=== PATIENT | male | born 1955 | race Caucasian/White ===

== ENCOUNTER → 2022-03-30 11:51 | Outpatient (BNVA) | payer MEDICARE, SELFPAY | PROVIDERS: Visit Provider Internal Medicine | DX: I11.9 Hypertensive heart disease without heart failure (principal); R06.09 Other forms of dyspnea; I25.10 Atherosclerotic heart disease of native coronary artery without angina pectoris; Z95.1 Presence of aortocoronary bypass graft; E78.5 Hyperlipidemia, unspecified; R94.31 Abnormal electrocardiogram [ECG] [EKG] | CPT/HCPCS: 93005; 99204 ==

== ENCOUNTER 2022-04-03 14:20 | Outpatient (CLI) | payer MEDICARE, SELFPAY ==
--- NOTE | 2022-04-03 14:15 | USCV_ITS ---
Abdi Guan Age: 66 Gender: M : 1955 Exam Date: 04/03/2022 14:42 Ordering Phys: Royal Gonzalez M.D ([email or web address]) Technologist: Exam Location[place] [facility] [place] Indication: hx of cabg BP: 155 / 88 HR: 99 Rhythm: Sinus Technical Quality: Adequate MEASUREMENTS (Male / Female) Normal Values 2D ECHO LV Diastolic Diameter PLAX 3.9 cm 4.2 - 5.9 / 3.9 - 5.3 cm LV Systolic Diameter PLAX 2.4 cm IVS Diastolic Thickness 1.2 cm 0.6 - 1.0 / 0.6 - 0.9 cm IVS Systolic Thickness 1.3 cm LVPW Diastolic Thickness 1.0 cm 0.6 - 1.0 / 0.6 - 0.9 cm LVPW Systolic Thickness 1.5 cm LVOT Diameter 2.1 cm LV Ejection Fraction 2D Teich 68.8 % LV Ejection Fraction MOD 2C 42.2 % LV Ejection Fraction 2C AL 41.3 % LA Diameter 4.5 cm M-MODE Aortic Annulus Diameter 3.4 cm LA Ao Ratio MM 1.4 MV E Point Septal Separation 1.4 cm DOPPLER AV Peak Velocity 125.0 cm/s LVOT Peak Velocity 99.0 cm/s AV Area Cont Eq vti 2.5 cm squared AV Area Cont Eq pk 2.6 cm squared MV Area PHT 3.1 cm squared Mitral E to A Ratio 0.9 MV E' Velocity 57.6 cm/s Mitral E to MV E' Ratio 14.0 Mitral E to LV E' Lateral Ratio 11.7 Mitral E to LV E' Septal Ratio 17.5 TR Peak Velocity 141.0 cm/s TR Peak Gradient 8.0 mmHg TV Peak E Velocity 97.0 cm/s Right Atrial Pressure 3.0 mmHg Pulmonary Artery Systolic Pressu 11.0 mmHg RV Acceleration Time 0.1 s FINDINGS Left Ventricle Technically limited quality echocardiogram because of poor ultrasonic windows. LV systolic function is normal with EF of 50 to 55%. No regional wall motion abnormalities are seen. Grade 1 diastolic dysfunction. Right Ventricle The right ventricle is normal in size and function. Right Atrium The right atrium is normal in size. Left Atrium Dilated. Mitral Valve Moderate mitral annular calcification is seen. Trace mitral regurgitation. Aortic Valve Aortic valve is thickened and calcified.No significant stenosis. Mild aortic regurgitation. Tricuspid Valve Trace tricuspid regurgitation. Insufficient TR jet to calculate RVSP. Pulmonic Valve Not well-visualized. Trace pulmonic regurgitation. Pericardium Normal pericardium without effusion. Aorta Grossly normal in size IVC Not well visualized CONCLUSIONS Technically limited quality echocardiogram because of poor ultrasonic windows. LV systolic function is normal with EF 50 to 55%. Grade 1 diastolic dysfunction Left atrial dilation Trace mitral regurgitation Mild aortic regurgitation Trace tricuspid regurgitation Trace pulmonic regurgitation No comparison studies are available Royal Gonzalez MD (Electronically Signed) Final Date: 17 April 2022 20:34 S
== END 2022-04-03 14:21 | disposition home or self-care (01) ==
PROVIDERS: PCP Family Medicine; Visit Provider Internal Medicine
DX: R06.09 Other forms of dyspnea (principal); Z95.1 Presence of aortocoronary bypass graft; I08.3 Combined rheumatic disorders of mitral, aortic and tricuspid valves
CPT/HCPCS: 93306

== ENCOUNTER → 2022-06-15 12:46 | Outpatient (BNVA) | payer MEDICARE, SELFPAY | PROVIDERS: PCP Family Medicine; Visit Provider Specialist | DX: G56.13 Other lesions of median nerve, bilateral upper limbs (principal) | CPT/HCPCS: 95910 ==

== ENCOUNTER → 2022-08-03 14:32 | Outpatient (BNVA) | payer MEDICARE, SELFPAY | PROVIDERS: PCP Family Medicine; Referring Provider Family Medicine; Visit Provider Specialist | DX: G56.03 Carpal tunnel syndrome, bilateral upper limbs (principal); G56.13 Other lesions of median nerve, bilateral upper limbs; Z01.818 Encounter for other preprocedural examination | CPT/HCPCS: 36415; 73110; 80053; 85025; 99204 ==

== ENCOUNTER 2022-08-14 05:46 | Day surgery (SDC) | payer MEDICARE, SELFPAY ==
[2022-08-13 09:16] VITALS: BMI 37.3
[2022-08-14] VITALS (10 sets, daily range): BP systolic 150–198; BP diastolic 80–99; PULSE 60–77; RESP 8–18; TEMP 36.3–36.6; O2SAT 94–96
[2022-08-14] MEDS: scopolamine 1.5 Patch 1 PATCH TRANSDERMA (06:27)
[2022-08-14] MEDS: acetaminophen 1,000 MG/100 ML PIGGYBACK 400 MG IV (06:31)
[2022-08-14] MEDS: CELEcoxib 200 mg Capsule 400 MG PO (06:33)
[2022-08-14] MEDS: gabapentin 300 mg Capsule PO (06:34)
[2022-08-14] MEDS: sodium chloride 0.9% 1,000 ML 30 ML IV (06:41)
--- NOTE | 2022-08-14 06:56 | P.HPUD_ITS ---
Surgery/Procedure H&P Update DATE OF PROCEDURE: August 14, 2022 DATE H&P PERFORMED: 08/05/22 H&P UPDATE INFORMATION: I have reviewed H&P completed within last 30 days, I have examined patient prior to procedure, No changes to prior documentation and H&P is in [facility] [place] EMR on date indicated PREOP DIAGNOSIS: Left carpal tunnel syndrome PLANNED PROCEDURE: Operation Date: 08/14/22 07:00 Proposed Procedures p left carpal tunnel release 39508 ,g56.00(Left) - Margaux Vazquez MD Related Problem List Diagnoses (1) Carpal tunnel syndrome, left:
[2022-08-14] MEDS: ceFAZolin 2,000 MG in sodium chloride 0.9% (plus) 50 ML 100 MG IV (07:00)
--- NOTE | 2022-08-14 08:08 | PC.NURSE ---
Pt arrived to PACU, resting comfortably, dressing to left wrist c/d/i, Left fingers p/w/d, cap refill < 3 seconds, able to wiggle fingers. LUE elevated on pillow.
--- NOTE | 2022-08-14 08:19 | ANES.PREANE2 ---
Pre-Anesthetic Assessment Height/Weight: Height 1.78 m Weight 117.934 kg Temp Pulse Resp BP Pulse Ox O2 Del Method 97.8 F 68 16 159/88 96 Room Air 08/14/22 08:08 08/14/22 08:18 08/14/22 08:18 08/14/22 08:18 08/14/22 08:18 08/14/22 08:18 Preop Diagnosis: Left carpal tunnel syndrome Operation Date: 08/14/22 07:00 Proposed Procedures p left carpal tunnel release [id number] ,g56.00(Left) - Margaux Vazquez MD Familial anesthetic complications: none Was Beta Zaida taken within 24 hours: Yes Was Clonidine taken within 24 hours: N/A Last intake: Intake Last Liquid Date 08/13/22 Last Liquid Time 18:30 Last Solid Date 08/13/22 Last Solid Time 18:30 Social No alcohol and No tobacco Exam alert, oriented x 3, clear to auscultation bilaterally and regular rate & rhythm Airway Submandibular: within normal limits Cervical ROM: within normal limits Mallampati: Class II Dentition: full CV/HEM Coronary Artery Disease (CABG) and Hypertension Metabolic Hyperlipidemia and Morbid Obesity Anesthetic Plan ASA status: 3 Anesthesia: Choice Medications/Allergies Home Medications Medication Instructions Recorded Confirmed Last Taken Type aspirin 81 mg tablet,delayed 162 mg PO DAILY 03/30/22 08/14/22 08/07/22 History release ezetimibe 10 mg tablet 10 mg PO DAILY 03/30/22 08/14/22 08/13/22 History losartan 100 mg tablet 100 mg PO DAILY 03/30/22 08/13/22 08/13/22 History metoprolol succinate 100 mg 100 mg PO DAILY 03/30/22 08/13/22 08/13/22 History tablet,extended release 24 hr rosuvastatin 20 mg tablet 10 mg PO DAILY #90 tabs 04/21/22 08/13/22 08/13/22 Rx amlodipine 10 mg tablet 10 mg PO DAILY #90 tabs 04/22/22 08/13/22 08/13/22 Rx pregabalin 100 mg capsule 100 mg PO BID 08/13/22 08/13/22 08/13/22 History hydrocodone 5 mg-acetaminophen 325 1 tab PO Q4H PRN pain #30 tabs 08/14/22 Unknown Rx mg tablet Allergies Allergy/AdvReac Type Severity Reaction Status Date / Time No Known Allergies Allergy Verified 08/05/22 09:43 Current Medications Generic Name Dose Route Start Last Admin Trade Name Freq PRN Reason Stop Dose Admin Sodium Chloride 1,000 mls @ 30 mls/hr 08/14/22 06:00 08/14/22 06:41 Sodium Chloride 0.9% IV 08/15/22 05:59 30 mls/hr .Q24H CARLOS Administration PFSH Anesthesia Medical History Heart disease HTN (hypertension) Surgical History History of quadruple bypass Family History Father Heart disease History of quadruple bypass Mother Diabetes Social History Smoking and tobacco status: never smoked Alcohol intake: never Substance/Drug Use: never Current occupation: retired Data Anesthesia Cardiac Studies: Echocardiogram 04/03/22
--- NOTE | 2022-08-14 08:25 | P.OP_ITS ---
Operative Report Date of procedure: August 14, 2022 Pre-op diagnosis: Left carpal tunnel syndrome Post-op diagnosis: Left carpal tunnel syndrome Post-op findings: Severe compression across the carpal canal Procedure done: Left Carpal Tunnel Release Implants: None Surgeon: Margaux Vazquez Senior Tableau Developer: None Anesthesia: General (Per LMA, ASA 3) Estimated blood loss (mL): 2 Tourniquet time (min): 40 (At 250 mmHg) IV fluids (mL): 700 Urine output (mL): 0 (No [place]) Complications: None Findings: Severe compression across the carpal canal Condition: stable Disposition: PACU (Then return to same-day surgery for discharge to home) Brief History: Abdi Guan is a 66-year-old gentleman who presented to my office complaining of bilateral hand pain. He noted numbness and tingling in both of his hands, and this pain worsened at night. The numbness was primarily in his index middle and ring fingers and radiated to his elbow. By history, he had cervical spine surgery approximately 2 years ago. His most symptomatic hand was his left hand. After discussion, he wished to proceed with carpal tunnel release. Risks and complications were discussed with him and consents were signed preoperatively in the office. Procedure: The patient was brought to the operating theater. Patient was administered a general anesthetic per LMA, ASA 3. The tourniquet was elevated to 250 mmHg for a total tourniquet time of 40 minutes. The patient was also given Ancef 2 g preoperatively. The arm was then prepped and draped with DuraPrep in usual fashion with the arm draped free. A surgical pause was performed. At the time, the surgical pause, we confirmed the site and side of surgery. We also confirmed the patient's identity, appropriate and timely administration of preoperative antibiotics and preoperative surgical markings. Positioning of the patient's hand was quite difficult as he was very on flexible and the hand would not supinate fully to allow access to the palm. Left hand was used to help hold the hand in appropriate position. An incision was then made along the thenar crease. The incision crossed the wrist joint in a curvilinear fashion. Dissection continued through skin and soft tissues using a scalpel. Hemostasis was obtained using electrocautery. The palmaris longus was identified along with the transverse carpal ligament. Each of these was released carefully to avoid injury to the median nerve. We were able to dissect gently into the carpal canal which was noted to be quite tight with significant compression across the median nerve. The nerve was visualized and was a slight hourglass shape. The canal was subsequently palpated to assure there was no bony encroachment upon the canal. The canal was then palpated distally and proximally to assure that my small finger was passed easily without impingement. Finding this to be so, attention was directed to closure. The wound was irrigated with ropivacaine plain. It was then closed with 3-0 nylon in an interrupted mattress fashion. Sterile dressing was then placed consisting of Dermabond, OpSite, fluffed fluffs, sterile soft roll, and an Connor wrap. The tourniquet was released after 40 minutes. There were no complications. There were no specimens. The procedure was well tolerated. Plan is the patient will be discharged home. Related Problem List Diagnoses (1) Carpal tunnel syndrome, left:
--- NOTE | 2022-08-14 14:13 | ANE.PACU2 ---
Inpatient post-anesthesia follow up: Airway intact: Yes Vital signs: Temperature 98 F Pulse Rate 60 Respiratory Rate 16 Blood Pressure 150/80 Pulse Oximetry 94 Oxygen Delivery Me thod Room Air Oxygen Flow Rate Fraction of Inspir ed Oxygen Hydration adequate: Yes Nausea and vomiting: No Pain level: 2 Mental status: Baseline
== END 2022-08-14 09:15 | disposition home or self-care (01) ==
PROVIDERS: PCP Family Medicine; Visit Provider Specialist
PROC: (CPT 64721; principal; 2022-08-14 07:00)
DX: G56.02 Carpal tunnel syndrome, left upper limb (principal); I25.10 Atherosclerotic heart disease of native coronary artery without angina pectoris; I10 Essential (primary) hypertension; E78.5 Hyperlipidemia, unspecified; E66.01 Morbid (severe) obesity due to excess calories; Z68.37 Body mass index [BMI] 37.0-37.9, adult; Z79.82 Long term (current) use of aspirin
CPT/HCPCS: 64721; 97760; J0131; J0690; J1100; J2405; J2704; J3010; J3490; J7030; L3908

== ENCOUNTER → 2022-08-28 08:45 | Outpatient (BNVA) | payer MEDICARE, SELFPAY | PROVIDERS: PCP Family Medicine; Visit Provider Nurse Practitioner Family | DX: G56.01 Carpal tunnel syndrome, right upper limb (principal); Z98.890 Other specified postprocedural states; S61.201A Unspecified open wound of left index finger without damage to nail, initial encounter; X58.XXXA Exposure to other specified factors, initial encounter | CPT/HCPCS: 99213 ==

== ENCOUNTER 2022-09-11 05:53 | Day surgery (SDC) | payer MEDICARE, SELFPAY ==
[2022-09-10 09:02] VITALS: BMI 37.3
[2022-09-11] VITALS (8 sets, daily range): BP systolic 105–140; BP diastolic 61–84; PULSE 56–78; RESP 8–20; TEMP 36.1–36.6; O2SAT 91–97
[2022-09-11] MEDS: CELEcoxib 200 mg Capsule 400 MG PO (06:27)
[2022-09-11] MEDS: gabapentin 300 mg Capsule PO (06:27)
[2022-09-11] MEDS: scopolamine 1.5 Patch 1 PATCH TRANSDERMA (06:27)
[2022-09-11] MEDS: sodium chloride 0.9% 1,000 ML 30 ML IV (06:44)
[2022-09-11] MEDS: acetaminophen 1,000 MG/100 ML PIGGYBACK 400 MG IV (06:46)
--- NOTE | 2022-09-11 06:53 | W.PM.OPSUD ---
Surgery/Procedure H&P Update DATE OF PROCEDURE: September 11, 2022 DATE H&P PERFORMED: 08/28/22 H&P UPDATE INFORMATION: I have reviewed H&P completed within last 30 days, I have examined patient prior to procedure, No changes to prior documentation and H&P is in [facility] [place] EMR on date indicated PLANNED PROCEDURE: Operation Date: 09/11/22 07:00 Proposed Procedures p RIGHT CARPAL TUNNEL RELEASE [id number], G56.00(Right) - Margaux Vazquez MD Related Problem List Diagnoses (1) Carpal tunnel syndrome on right:
[2022-09-11 07:17] LABS: Anion Gap 17.1 (5-19); Blood Urea Nitrogen 15 mg/dL (8-23); Calcium 9.5 mg/dL (8.5-10.5); Carbon Dioxide 21 mmol/L (22-29); Chloride 104 mmol/L (98-107); Glomerular Filtration Rate 112.1 mL/min (90-130); Glucose 129 mg/dL (65-115); Osmolality Calculated 289 mOsm/kg (285-295); Potassium 4.1 mmol/L (3.5-5.1); Sodium 138 mmol/L (136-145)
[2022-09-11] MEDS: ceFAZolin 2,000 MG in sodium chloride 0.9% (plus) 50 ML 100 MG IV (07:22)
--- NOTE | 2022-09-11 08:31 | PC.NURSE ---
pulse ox used and anlternated between fingers every 5 minutes.
--- NOTE | 2022-09-11 08:42 | P.OP_ITS ---
Operative Report Date of procedure: September 11, 2022 Pre-op diagnosis: Right carpal tunnel syndrome Post-op diagnosis: Right carpal tunnel syndrome Post-op findings: Significant compression across the carpal canal with purplish discoloration of the median nerve which was right up against the transverse carpal ligament. Procedure done: Right carpal tunnel release Pathology: none sent Surgeon: Margaux Vazquez Receptionist Telephone Operator: None Anesthesia: General (Per LMA, ASA 3) Estimated blood loss (mL): 1 Tourniquet time (min): 20 (At 250 mmHg) IV fluids (mL): 700 Urine output (mL): 0 (No [place]) Complications: None Findings: Severe compression across the carpal canal Condition: stable Disposition: PACU (Then return to same-day surgery for discharge to home) Brief History: Abdi Guan is a 66-year-old gentleman who presented to my office complaining of bilateral hand pain.? He noted numbness and tingling in both of his hands, and this pain worsened at night.? The numbness was primarily in his index middle and ring fingers and radiated to his elbow.? By history, he had cervical spine surgery approximately 2 years ago.? His most symptomatic hand was his left hand. Carpal tunnel release was accomplished on the left, and he now presents for carpal tunnel release to the right. Once again, risk and complications were discussed with him. Consents were signed and questions were answered. Of note, the patient had issues with the index finger of his right hand immediately following his previous left carpal tunnel release. He had a reaction in the index finger under the pulse oximeter. He discovered this once he returned home. Pictures are reviewed, and we have elected to not use adhesive pulse oximetry, but we will use an alligator clip style pulse oximeter and will do frequent checks underneath the pulse oximeter. Procedure: The patient was brought to the operating theater.? Patient was administered a general anesthetic per LMA, ASA 3. The tourniquet was elevated to 250 mmHg for a total tourniquet time of 20 minutes. The patient was also given Ancef 2 g preop eratively. The arm was then prepped and draped with DuraPrep in usual fashion with the arm draped free. A surgical pause was performed. At the time, the surgical pause, we confirmed the site and side of surgery. We also confirmed the patient's identity, appropriate and timely administration of preoperative antibiotics and preoperative surgical markings. Positioning of the patient's hand was quite difficult as he was very on flexible and the hand would not supinate fully to allow access to the palm.? Lead hand was used to help hold the hand in appropriate position.? An incision was then made along the thenar crease. The incision crossed the wrist joint in a curvilinear fashion. Dissection continued through skin and soft tissues using a scalpel.? Hemostasis was obtained using electrocautery.? The palmaris longus was identified along with the transverse carpal ligament. Each of these was released carefully to avoid injury to the median nerve. We were able to dissect gently into the carpal canal which was noted to be quite tight with significant compression across the median nerve. The nerve was visualized and was adherent to the undersurface of the transverse carpal ligament. This was released gently. Additionally, it was noted to be an hourglass shape and purplish discoloration. Fibrous tissue within the carpal canal was also released. The canal was subsequently palpated to assure there was no bony encroachment upon the canal.? The canal was then palpated distally and proximally to assure that my small finger was passed easily without impingement. Finding this to be so, attention was directed to closure. The wound was irrigated with ropivacaine plain. It was then closed with 3-0 nylon in an interrupted mattress fashion. Sterile dressing was then placed consisting of Dermabond, OpSite, fluffed fluffs, sterile soft roll, and an Connor wrap. The tourniquet was released after 20 minutes. Procedure, the alligator clip style pulse oximeter was transferred to a different finger every 5 minutes. There were no complications. There were no specimens. The procedure was well tolerated. Plan is the patient will be discharged home. Related Problem List Diagnoses (1) Carpal tunnel syndrome on right:
--- NOTE | 2022-09-11 10:01 | P.ANESASSM_ITS ---
Pre-Anesthetic Assessment Height/Weight: Height 1.78 m Weight 117.934 kg Temp Pulse Resp BP Pulse Ox O2 Del Method O2 Flow Rate 97.0 F L 56 L 16 116/67 91 Room Air 6 09/11/22 08:57 09/11/22 09:09 09/11/22 09:09 09/11/22 09:09 09/11/22 09:09 09/11/22 09:09 09/11/22 08:28 Operation Date: 09/11/22 07:00 Proposed Procedures p RIGHT CARPAL TUNNEL RELEASE [id number], G56.00(Right) - Margaux Vazquez MD Familial anesthetic complications: none Was Beta Zaida taken within 24 hours: Yes Was Clonidine taken within 24 hours: N/A Last intake: Intake Last Liquid Date 09/10/22 Last Liquid Time 19:00 Last Solid Date 09/10/22 Last Solid Time 19:00 Social No alcohol and No tobacco Exam alert, oriented x 3, clear to auscultation bilaterally and regular rate & rhythm Airway Submandibular: within normal limits Cervical ROM: within normal limits Mallampati: Class II Dentition: full CV/HEM Coronary Artery Disease (CABG) and Hypertension Metabolic Hyperlipidemia and Morbid Obesity Anesthetic Plan ASA status: 3 Anesthesia: MAC Medications/Allergies Home Medications Medication Instructions Recorded Confirmed Last Taken Type aspirin 81 mg tablet,delayed 162 mg PO DAILY 03/30/22 09/11/22 1 Week Ago History release ~09/04/22 ezetimibe 10 mg tablet 10 mg PO DAILY 03/30/22 09/10/22 09/10/22 History losartan 100 mg tablet 100 mg PO DAILY 03/30/22 09/10/22 09/10/22 History metoprolol succinate 100 mg 100 mg PO DAILY 03/30/22 09/10/22 09/10/22 History tablet,extended release 24 hr rosuvastatin 20 mg tablet 10 mg PO DAILY #90 tabs 04/21/22 09/10/22 09/10/22 Rx amlodipine 10 mg tablet 10 mg PO DAILY #90 tabs 04/22/22 09/10/22 09/10/22 Rx pregabalin 100 mg capsule 100 mg PO BID 08/13/22 09/10/22 09/10/22 History hydrocodone 5 mg-acetaminophen 325 1 tab PO Q4H PRN pain 7 days #30 09/11/22 Unknown Rx mg tablet tabs Allergies Allergy/AdvReac Type Severity Reaction Status Date / Time No Known Allergies Allergy Verified 09/10/22 08:56 [facility] Anesthesia Medical History Heart disease HTN (hypertension) Surgical History History of quadruple bypass Family History Father Heart disease History of quadruple bypass Mother Diabetes Social History Smoking and tobacco status: never smoked Alcohol intake: never Substance/Drug Use: never Current occupation: retired Data Anesthesia 09/11/22 06:32 BMP 09/11/22 06:32 Sodium 138 Potassium 4.1 Chloride 104 Carbon Dioxide 21 L BUN 15 Creatinine 0.7 Glucose 129 H Calcium 9.5 Cardiac Studies: Echocardiogram 04/03/22
--- NOTE | 2022-09-11 17:27 | ANE.PACU2 ---
Inpatient post-anesthesia follow up: Airway intact: Yes Vital signs: Temperature 97.0 F Pulse Rate 56 Respiratory Rate 16 Blood Pressure 116/67 Pulse Oximetry 91 Oxygen Delivery Me thod Room Air Oxygen Flow Rate 6 Fraction of Inspir ed Oxygen Hydration adequate: Yes Nausea and vomiting: No Pain level: 2 Mental status: Baseline
== END 2022-09-11 09:26 | disposition home or self-care (01) ==
PROVIDERS: Anesthesiology; PCP Family Medicine; Visit Provider Specialist
PROC: (CPT 64721; principal; 2022-09-11 07:00)
DX: G56.01 Carpal tunnel syndrome, right upper limb (principal); I25.10 Atherosclerotic heart disease of native coronary artery without angina pectoris; I10 Essential (primary) hypertension; E78.5 Hyperlipidemia, unspecified; E66.01 Morbid (severe) obesity due to excess calories; Z68.37 Body mass index [BMI] 37.0-37.9, adult; Z95.1 Presence of aortocoronary bypass graft; Z79.82 Long term (current) use of aspirin; Z79.891 Long term (current) use of opiate analgesic
CPT/HCPCS: 64721; 36415; 80048; J0131; J0690; J2704; J3010; J3490; J7030; L3908

== ENCOUNTER → 2022-09-24 09:04 | Outpatient (BNVA) | payer MEDICARE, SELFPAY | PROVIDERS: PCP Family Medicine; Visit Provider Nurse Practitioner Family | DX: Z98.890 Other specified postprocedural states (principal) | CPT/HCPCS: 99024 ==

== ENCOUNTER → 2022-10-07 08:09 | Outpatient (BNVA) | payer MEDICARE, SELFPAY | PROVIDERS: PCP Family Medicine; Visit Provider Specialist | DX: Z98.890 Other specified postprocedural states (principal) | CPT/HCPCS: 99024 ==

== ENCOUNTER → 2023-05-06 13:03 | Outpatient (BNVA) | payer MEDICARE, SELFPAY | PROVIDERS: PCP Family Medicine; Referring Provider Family Medicine; Visit Provider Surgery | DX: K92.1 Melena (principal); Z80.0 Family history of malignant neoplasm of digestive organs | CPT/HCPCS: 99204 ==

== ENCOUNTER 2023-06-16 07:12 | Day surgery (SDC) | payer MEDICARE, SELFPAY ==
[2023-06-16 07:37] VITALS: BP 170/102; PULSE 70; RESP 18; TEMP 36.1; O2SAT 96
[2023-06-16] MEDS: sodium chloride 0.9% 1,000 ML 30 ML IV (07:45)
--- NOTE | 2023-06-16 08:09 | ANES.PREANE2 ---
Pre-Anesthetic Assessment Height/Weight: Height 1.78 m Weight 122.47 kg Temp Pulse Resp BP Pulse Ox O2 Del Method 97.0 F L 70 18 170/102 96 Room Air 06/16/23 07:37 06/16/23 07:37 06/16/23 07:37 06/16/23 07:37 06/16/23 07:37 06/16/23 07:37 Preop Diagnosis: Melena Operation Date: 06/16/23 08:15 Proposed Procedures p EGD(Not Applicable) - Loc Delcid DO s Colonoscopy(Not Applicable) - Loc Delcid DO Was Clonidine taken within 24 hours: N/A Last intake: Intake Last Liquid Date 06/15/23 Last Liquid Time 22:00 Last Solid Date 06/14/23 Last Solid Time 18:00 Social No alcohol and No tobacco Exam alert, oriented x 3, clear to auscultation bilaterally and regular rate & rhythm Airway Submandibular: within normal limits Cervical ROM: within normal limits Mallampati: Class II Dentition: full History/ROS No significant history except as noted and No significant complaints CV/HEM Coronary Artery Disease CABG 10 yo None reported Hepatic None reported GI None reported Metabolic None reported Musc/skel None reported Neuropsych None reported Anesthetic Plan ASA status: 3 Anesthesia: Anesthesia Evaluation and MAC Risk of > 500 ml blood loss (7ml/kg in children): No Medications/Allergies Home Medications Medication Instructions Recorded Confirmed Last Taken Type aspirin 81 mg tablet,delayed 162 mg PO DAILY 03/30/22 06/14/23 06/14/23 History release ezetimibe 10 mg tablet 10 mg PO BEDTIME 03/30/22 06/14/23 06/15/23 History losartan 100 mg tablet 100 mg PO BEDTIME 03/30/22 06/14/23 06/15/23 History metoprolol succinate 100 mg 100 mg PO BEDTIME 03/30/22 06/14/23 06/15/23 History tablet,extended release 24 hr pregabalin 100 mg capsule 100 mg PO BID 08/13/22 06/14/23 06/15/23 History amlodipine 10 mg tablet 10 mg PO BEDTIME 06/14/23 06/14/23 06/15/23 History rosuvastatin 20 mg tablet 10 mg PO BEDTIME 06/14/23 06/14/23 06/15/23 History Allergies Allergy/AdvReac Type Severity Reaction Status Date / Time No Known Allergies Allergy Verified 10/07/22 08:16 Current Medications Generic Name Dose Route Start Last Admin Trade Name Freq PRN Reason Stop Dose Admin Sodium Chloride 1,000 mls @ 30 mls/hr 06/16/23 07:30 06/16/23 07:45 Sodium Chloride 0.9% IV 06/17/23 07:29 30 mls/hr .Q24H CARLOS Administration PFSH Anesthesia Medical History (Updated 05/06/23 @ 14:38 by Loc Delcid DO) Family history of colon cancer HTN (hypertension) Heart disease Surgical History History of quadruple bypass Family History Father Heart disease History of quadruple bypass Mother Diabetes Social History Smoking and tobacco/nicotine status: never used tobacco/nicotine Alcohol intake: never Substance/Drug Use: never Current occupation: retired Data Anesthesia Cardiac Studies: Echocardiogram 04/03/22
--- NOTE | 2023-06-16 08:13 | P.HP_ITS ---
Providers/Chief Complaint Primary Care Provider: Pili Naylor DO Chief Complaint: K92.1, Z80.0, R19.5 History of Present Illness Abdi Guan is a 67 year old male Review of Systems General: Reports: 10 or more systems reviewed and unremarkable except in HPI and below Medications/Allergies Home Medications Medication Instructions Recorded Confirmed Last Taken Type aspirin 81 mg tablet,delayed 162 mg PO DAILY 03/30/22 06/14/23 06/14/23 History release ezetimibe 10 mg tablet 10 mg PO BEDTIME 03/30/22 06/14/23 06/15/23 History losartan 100 mg tablet 100 mg PO BEDTIME 03/30/22 06/14/23 06/15/23 History metoprolol succinate 100 mg 100 mg PO BEDTIME 03/30/22 06/14/23 06/15/23 History tablet,extended release 24 hr pregabalin 100 mg capsule 100 mg PO BID 08/13/22 06/14/23 06/15/23 History amlodipine 10 mg tablet 10 mg PO BEDTIME 06/14/23 06/14/23 06/15/23 History rosuvastatin 20 mg tablet 10 mg PO BEDTIME 06/14/23 06/14/23 06/15/23 History Allergies Allergy/AdvReac Type Severity Reaction Status Date / Time No Known Allergies Allergy Verified 10/07/22 08:16 PFSH Acute PFSH: Medical History (Updated 05/06/23 @ 14:38 by Loc Delcid DO) Family history of colon cancer HTN (hypertension) Heart disease Surgical History History of quadruple bypass Family History Father Heart disease History of quadruple bypass Mother Diabetes Social History Smoking and tobacco/nicotine status: never used tobacco/nicotine Alcohol intake: never Substance/Drug Use: never Current occupation: retired Vitals/I&O/Wt Last Vital Signs Temp 97.0 F L 06/16/23 07:37 Pulse 70 06/16/23 07:37 Resp 18 06/16/23 07:37 BP 170/102 06/16/23 07:37 Pulse Ox 96 06/16/23 07:37 O2 Del Method Room Air 06/16/23 07:37 Weight last 48 hrs Weight 270 lb A&P Assessment and plan (1) Melena: (2) Hematochezia: (3) Family history of colon cancer: (4) Positive colorectal cancer screening using Cologuard test: Plan EGD and colonoscopy Attestations Medical Necessity Statement*: Home Coding Level of Care Code Acute Code for [facility] Fwd Diagnoses Melena K92.1 Hematochezia K92.1 Family history of colon cancer Z80.0 Positive colorectal cancer screening using Cologuard test R19.5
[2023-06-16 08:51] VITALS: BP 160/96; PULSE 67; RESP 20; TEMP 36.3; O2SAT 96
[2023-06-16 09:00] VITALS: BP 137/103; PULSE 64; RESP 20; O2SAT 95
[2023-06-16 09:12] VITALS: BP 153/94; PULSE 67; RESP 20; O2SAT 93
--- NOTE | 2023-06-16 09:30 | ANE.PACU2 ---
Inpatient post-anesthesia follow up: Airway intact: Yes Vital signs: Temperature 97.4 F Pulse Rate 67 Respiratory Rate 20 Blood Pressure 153/94 Pulse Oximetry 93 Oxygen Delivery Me thod Room Air Oxygen Flow Rate 6 Fraction of Inspir ed Oxygen Hydration adequate: Yes Nausea and vomiting: No Pain level: 1 Mental status: Baseline
== END 2023-06-16 09:31 | disposition home or self-care (01) ==
PROVIDERS: PCP Family Medicine; Visit Provider Surgery
PROC: 0DJ08ZZ Inspection of Upper Intestinal Tract, Via Natural or Artificial Opening Endoscopic (ICD-10-PCS; principal; 2023-06-16 08:15)
PROC: 0DJD8ZZ Inspection of Lower Intestinal Tract, Via Natural or Artificial Opening Endoscopic (ICD-10-PCS; CPT 45378; 2023-06-16 08:15)
DX: R19.5 Other fecal abnormalities (principal); Z80.0 Family history of malignant neoplasm of digestive organs; K62.89 Other specified diseases of anus and rectum; K64.8 Other hemorrhoids; K29.80 Duodenitis without bleeding; K29.50 Unspecified chronic gastritis without bleeding; I25.10 Atherosclerotic heart disease of native coronary artery without angina pectoris; Z95.1 Presence of aortocoronary bypass graft; Z79.82 Long term (current) use of aspirin; I11.0 Hypertensive heart disease with heart failure; I50.9 Heart failure, unspecified
CPT/HCPCS: 43239; 45380; 88305; 88342; J2704; J7030

== ENCOUNTER → 2023-07-01 14:06 | Outpatient (BNVA) | payer MEDICARE, SELFPAY | PROVIDERS: PCP Family Medicine; Visit Provider Surgery | DX: K22.10 Ulcer of esophagus without bleeding (principal); K29.80 Duodenitis without bleeding; K29.90 Gastroduodenitis, unspecified, without bleeding; K62.89 Other specified diseases of anus and rectum | CPT/HCPCS: 99214 ==

== ENCOUNTER → 2024-01-25 12:30 | Outpatient (BNVA) | payer MEDICARE, SELFPAY | PROVIDERS: PCP Family Medicine; Visit Provider Internal Medicine | DX: R06.09 Other forms of dyspnea (principal); R07.9 Chest pain, unspecified; I10 Essential (primary) hypertension; Z95.1 Presence of aortocoronary bypass graft; E78.5 Hyperlipidemia, unspecified; R00.2 Palpitations | CPT/HCPCS: 99214 ==

== ENCOUNTER 2024-02-02 08:41 | Outpatient (CLI) | payer MEDICARE, SELFPAY ==
--- NOTE | 2024-02-02 | ECG_ITS ---
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 Interpretive Statements LEXISCAN SESTAMIBI STRESS TEST Procedure: At the baseline, the blood pressure was 115/86mmHg with a heart rate of 73 bpm. The electrocardiogram showed normal sinus rhythm, LVH changes The Lexiscan was infused over a period of 20 seconds. A total of 0.4 mg of Lexiscan was infused. The stress phase was continued for a total of 5 minutes. Heart rate was at the end of stress phase was 95 bpm and a blood pressure of 150/86 mmHg. The EKG at the peak infusion revealed normal sinus rhythm with no significant ST-T wave changes. Sestamibi was injected 20 seconds after the Lexiscan infusion. Blood pressure at the end of recovery phase was 166/85 mmHg with a heart rate of 85 bpm. Conclusion: 1. Normal EKG response to Lexiscan infusion 2. No Lexiscan induced chest pain or cardiac arrhythmia. 3. Normal blood pressure and heart rate response. 4. Sestamibi/sestamibi perfusion scan pending; see separate report. Electronically Signed On 02-07-2024 08:57:06 CARD SCRAPER by Royal Gonzalez M.D. [email or web address]
--- NOTE | 2024-02-02 08:53 | NMCV_ITS ---
NM ruthann perf SPECT r/s* [id number] Abdi Guan Age: 68 Gender: M : 1955 Exam Date: 02/02/2024 08:53 Ordering Phys: Royal Gonzalez M.D ([email or web address]) Technologist: AMENA Freeman Exam Location: [facility] Indications: cp STRESS TEST [facility] IMAGE PROTOCOL Rest/Stress 1 Lexiscan Day Radiopharmaceutical Dose (mCi) Administration Site Administered by Rest: Tc-99m 10.9 IV AMENA Freeman Sestamibi Stress:Tc-99m 33 IV AMENA Freeman Sestamibi Rest: 02-Feb-2024 60 Discovery 630 Stress: 02-Feb-2024 30 Discovery 630 0.4mg Lexiscan. Images obtained in supine and prone position. SPECT RESULTS Technical Quality: Good Raw Data Analysis: Normal Image Corrections: No attenuation or motion correction applied Summed Stress Score: 3 Summed Rest Score: 0 Summed Difference Score: 3 PERFUSION FINDINGS There is a small sized, partially reversible perfusion defects seen in the mid anterior and inferior knott. 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 FUNCTIONAL RESULTS (calculated via Gated SPECT) Stress Image LV EF (%): 72 Stress EDV (mL):116 TID: 1.03 Stress ESV (mL):33 FUNCTIONAL FINDINGS: There is normal left ventricular systolic function. IMPRESSIONS 1. 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 2. LV systolic function is normal Royal Gonzalez MD (Electronically Signed) Final Date: 02 February 2024 17:14 S
[2024-02-02 09:11] VITALS: BMI 37.5
[2024-02-02] MEDS: ondansetron 2 mg/ML SDV 2 mL 4 MG IVP (10:38)
[2024-02-02 11:02] VITALS: BP 141/82; PULSE 81
== END 2024-02-02 08:42 | disposition home or self-care (01) ==
LOC: CDL 08:42
PROVIDERS: PCP Family Medicine; Visit Provider Internal Medicine
DX: R07.9 Chest pain, unspecified (principal); R94.39 Abnormal result of other cardiovascular function study
CPT/HCPCS: 36415; 78452; 93017; 96374; 96375; A9500; J2405

== ENCOUNTER → 2024-05-24 12:26 | Outpatient (BNVA) | payer MEDICARE, SELFPAY | PROVIDERS: PCP Family Medicine; Visit Provider Nurse Practitioner Family | DX: L81.4 Other melanin hyperpigmentation (principal); L57.8 Other skin changes due to chronic exposure to nonionizing radiation; L57.0 Actinic keratosis | CPT/HCPCS: 17004; 99203 ==

== ENCOUNTER → 2024-07-25 13:34 | Outpatient (BNVA) | payer MEDICARE, SELFPAY | PROVIDERS: PCP Family Medicine; Visit Provider Internal Medicine | DX: I10 Essential (primary) hypertension (principal); E78.5 Hyperlipidemia, unspecified; Z79.82 Long term (current) use of aspirin; Z95.1 Presence of aortocoronary bypass graft; I25.2 Old myocardial infarction | CPT/HCPCS: 99213 ==

== ENCOUNTER → 2024-08-23 11:22 | Outpatient (BNVA) | payer MEDICARE, SELFPAY | PROVIDERS: PCP Family Medicine; Visit Provider Nurse Practitioner Family | DX: L81.4 Other melanin hyperpigmentation (principal); L57.8 Other skin changes due to chronic exposure to nonionizing radiation; L21.8 Other seborrheic dermatitis; L57.0 Actinic keratosis | CPT/HCPCS: 17000; 99214 ==

== ENCOUNTER → 2025-01-23 13:23 | Outpatient (BNVA) | payer MEDICARE, SELFPAY | PROVIDERS: PCP Family Medicine; Visit Provider Internal Medicine | DX: E78.5 Hyperlipidemia, unspecified (principal); I10 Essential (primary) hypertension; R06.09 Other forms of dyspnea; Z95.1 Presence of aortocoronary bypass graft; R00.2 Palpitations | CPT/HCPCS: 99214 ==